=== PATIENT | male | born 1980 | race Hispanic/Latino ===

== ENCOUNTER 2018-03-19 22:08 | Emergency (ER) | payer SELFPAY ==
[~2018-03-19 22:08] MED LIST: AEC81 PO; ALLO300T2 PO; FLUT16H NASAL
[2018-03-19] MEDS ORDERED: SODIUM CHLORIDE 0.9% 1000ML 1,000 ML IV ONE (22:50)
[2018-03-19] MEDS ORDERED: ONDANSETRON HCL MDV 20ML 2 MG/ML VIAL ONE (22:50)
[2018-03-19] MEDS ORDERED: KETOROLAC TROMETHAMINE 30MG/ML ONE (22:51)
[2018-03-19 22:52] LABS: BASOPHILS % (AUTO) 0.5 % (0.0-5.0); EOSINOPHILS % (AUTO) 2.5 % (0.0-8.0); LYMPHOCYTES % (AUTO) 29.9 % (21.0-51.0); MEAN CORPUSCULAR HEMOGLOBIN 27.3 pg (27.0-33.0); MEAN CORPUSCULAR HGB CONC 33.5 g/dL (32.0-36.0); MEAN CORPUSCULAR VOLUME 81.6 fL (79-99); MONOCYTES % (AUTO) 6.3 % (3.0-13.0); NEUTROPHILS % (AUTO) 60.8 % (40.0-77.0); PLATELET COUNT (AUTO) 426 K/uL (130-400); RED BLOOD CELL COUNT(AUTO) 4.78 MIL/uL (4.50-6.20); RED CELL DISTRIBUTION WIDTH 14.4 % (11.0-15.5); WHITE BLOOD COUNT (AUTO) 14.1 K/uL (4.8-10.8)
[2018-03-19 23:11] LABS: CREATININE 1.1 mg/dL (0.5-1.5); POTASSIUM 3.7 mmol/L (3.5-5.1)
[2018-03-19 23:16] LABS: ALBUMIN 3.9 g/dL (3.5-5.0); BILIRUBIN,TOTAL 0.2 mg/dL (0.2-1.0); TOTAL PROTEIN, SERUM 9.3 g/dL (6.0-8.3)
[2018-03-20] MEDS ORDERED: CYCLOBENZAPRINE HCL 10 MG TABLET ONE (00:50)
== END 2018-03-20 00:56 | disposition home or self-care (01) ==
LOC: EDH 22:08
DX: M62.830 Muscle spasm of back (principal); M10.9 Gout, unspecified; Z88.8 Allergy status to other drugs, medicaments and biological substances
CPT/HCPCS: 36415; 72040; 80053; 84484; 85025; 93005; 96361; 96374; 96375; 99285; J1885; J7030

== ENCOUNTER 2018-08-23 19:59 | Emergency (ER) | payer OTHER ==
[2018-08-23 21:37] LABS: BASOPHILS % (AUTO) 0.4 % (0.0-5.0); EOSINOPHILS % (AUTO) 2.1 % (0.0-8.0); HEMATOCRIT 35.9 % (42-54); LYMPHOCYTES % (AUTO) 21.2 % (21.0-51.0); MEAN CORPUSCULAR HEMOGLOBIN 27.2 pg (27.0-33.0); MEAN CORPUSCULAR HGB CONC 32.5 g/dL (32.0-36.0); MEAN CORPUSCULAR VOLUME 83.7 fL (79-99); MONOCYTES % (AUTO) 8.6 % (3.0-13.0); NEUTROPHILS % (AUTO) 67.7 % (40.0-77.0); PLATELET COUNT (AUTO) 324 K/uL (130-400); RED BLOOD CELL COUNT(AUTO) 4.29 MIL/uL (4.50-6.20); RED CELL DISTRIBUTION WIDTH 14.1 % (11.0-15.5); WHITE BLOOD COUNT (AUTO) 14.9 K/uL (4.8-10.8)
[2018-08-23] MEDS ORDERED: SODIUM CHLORIDE 0.9% 1000ML 1,000 ML IV ONE (21:45)
[2018-08-23] MEDS ORDERED: INDOMETHACIN 25 MG CAP PO SCH (21:45)
[2018-08-23] MEDS ORDERED: KETOROLAC TROMETHAMINE 30MG/ML ONE (21:45)
[2018-08-23 21:54] LABS: POTASSIUM 3.5 mmol/L (3.5-5.1)
[2018-08-23 21:59] LABS: ALBUMIN 3.3 g/dL (3.5-5.0); BILIRUBIN,TOTAL 0.2 mg/dL (0.2-1.0); TOTAL PROTEIN, SERUM 8.3 g/dL (6.0-8.3)
[2018-08-24] MEDS ORDERED: MORPHINE SULFATE 4 MG/1ML SYG ONE (00:01)
[2018-08-24] MEDS ORDERED: ONDANSETRON HCL 4 MG/2 ML VIAL ONE (00:01)
== END 2018-08-24 01:45 | disposition home or self-care (01) ==
LOC: EDH 19:59
DX: M10.9 Gout, unspecified (principal); I10 Essential (primary) hypertension; Z88.8 Allergy status to other drugs, medicaments and biological substances
CPT/HCPCS: 36415; 73080; 80053; 84550; 85025; 96374; 96375; 99285; J1885; J2270; J2405; J7030

== ENCOUNTER 2018-10-08 16:40 | Emergency (ER) | payer OTHER ==
[2018-10-08] MEDS ORDERED: SODIUM CHLORIDE 0.9% 1000ML 1,000 ML IV ONE (17:48)
[2018-10-08] MEDS ORDERED: ONDANSETRON HCL 4 MG/2 ML VIAL ONE (17:48)
[2018-10-08] MEDS ORDERED: MECLIZINE HCL 25 MG TABLET ONE (17:48)
[2018-10-08 18:25] LABS: EOSINOPHILS % (AUTO) 3.2 % (0.0-8.0); HEMATOCRIT 40.3 % (42-54); MEAN CORPUSCULAR HEMOGLOBIN 28.2 pg (27.0-33.0); MEAN CORPUSCULAR HGB CONC 33.5 g/dL (32.0-36.0); MONOCYTES % (AUTO) 6.5 % (3.0-13.0); NEUTROPHILS % (AUTO) 62.3 % (40.0-77.0); PLATELET COUNT (AUTO) 374 K/uL (130-400); RED BLOOD CELL COUNT(AUTO) 4.79 MIL/uL (4.50-6.20); RED CELL DISTRIBUTION WIDTH 14.4 % (11.0-15.5); WHITE BLOOD COUNT (AUTO) 10.8 K/uL (4.8-10.8)
[2018-10-08 18:37] LABS: CREATININE 0.9 mg/dL (0.5-1.5); POTASSIUM 3.9 mmol/L (3.5-5.1)
[2018-10-08 18:41] LABS: APPEARANCE,URINE Clear (CLEAR); BILIRUBIN,URINE Negative (NEGATIVE); COLOR,URINE Yellow (YELLOW); GLUCOSE, URINE (UA) Negative (NEGATIVE); KETONES,URINE Negative (NEGATIVE); LEUKOCYTE ESTERASE ,URINE Negative (NEGATIVE); NITRATE,URINE Negative (NEGATIVE); OCCULT BLOOD,URINE Negative (NEGATIVE); PROTEIN,URINE Negative (NEGATIVE); UROBILINOGEN,URINE 0.2 mg/dL (0.2-1.0)
[2018-10-08 18:42] LABS: ALBUMIN 3.7 g/dL (3.5-5.0); BILIRUBIN,TOTAL 0.2 mg/dL (0.2-1.0); TOTAL PROTEIN, SERUM 8.8 g/dL (6.0-8.3)
[2018-10-08 18:49] LABS: AMPHET/METH SCREEN,URINE NEGATIVE (NEGATIVE); BARBITURATE SCREEN, URINE NEGATIVE (NEGATIVE); BENZODIAZEPINES SCREEN,URINE NEGATIVE (NEGATIVE); CANNABINOID SCREEN,URINE NEGATIVE (NEGATIVE); COCAINE SCREEN,URINE NEGATIVE (NEGATIVE); OPIATE SCREEN,URINE NEGATIVE (NEGATIVE); PHENCYCLIDINE SCREEN,URINE NEGATIVE (NEGATIVE)
[2018-10-08] MEDS ORDERED: PROMETHAZINE HCL 25 MG/ML 1ML AMPULE IM ONE (20:24)
== END 2018-10-08 20:37 | disposition home or self-care (01) ==
LOC: EDH 16:40
DX: H81.10 Benign paroxysmal vertigo, unspecified ear (principal); R22.0 Localized swelling, mass and lump, head; M10.9 Gout, unspecified; Z88.8 Allergy status to other drugs, medicaments and biological substances
CPT/HCPCS: 36415; 70450; 80053; 80305; 81003; 85025; 96361; 96372; 96374; 99285; J2405; J2550; J7030

== ENCOUNTER 2018-11-28 01:18 | Emergency (ER) | payer OTHER ==
[2018-11-28] MEDS ORDERED: BENZONATATE 100 MG CAPSULE PO ONE (02:00)
[2018-11-28] MEDS ORDERED: IPRATROPIUM/ALBUTEROL SULFATE 3 ML SOLUTION IH ONE (02:19)
[2018-11-28] MEDS ORDERED: PREDNISONE 20 MG TABLET ONE (02:48)
[2018-11-28] MEDS ORDERED: AZITHROMYCIN 250 MG TABLET PO ONE (03:40)
== END 2018-11-28 03:47 | disposition home or self-care (01) ==
LOC: EDH 01:18
DX: J18.8 Other pneumonia, unspecified organism (principal); Z88.8 Allergy status to other drugs, medicaments and biological substances
CPT/HCPCS: 71046; 87804; 94640

== ENCOUNTER 2019-01-12 22:25 | Emergency (ER) | payer OTHER ==
[2019-01-12] MEDS ORDERED: KETOROLAC TROMETHAMINE 60 MG/2 ML VIAL ONE (23:37)
[2019-01-12] MEDS ORDERED: DIAZEPAM 5 MG TABLET ONE (23:37)
[2019-01-12] MEDS ORDERED: HYDROCODONE/ACETAMINOPHEN 10/325 MG TAB ONE (23:38)
== END 2019-01-13 00:02 | disposition home or self-care (01) ==
LOC: EDH 22:25
DX: M62.830 Muscle spasm of back (principal); M54.6 Pain in thoracic spine; M54.2 Cervicalgia; Z88.6 Allergy status to analgesic agent
CPT/HCPCS: 96372; 99283; J1885

== ENCOUNTER 2019-09-18 19:46 | Emergency (ER) | payer OTHER ==
[2019-09-18] MEDS ORDERED: ACETAMINOPHEN EXTRA STRENGTH 500 MG TABLET ONE (20:06)
== END 2019-09-18 21:48 | disposition home or self-care (01) ==
LOC: EDH 19:46
DX: S49.92XA Unspecified injury of left shoulder and upper arm, initial encounter (principal); E11.9 Type 2 diabetes mellitus without complications; Z88.8 Allergy status to other drugs, medicaments and biological substances; W01.0XXA Fall on same level from slipping, tripping and stumbling without subsequent striking against object, initial encounter; Y93.E5 Activity, floor mopping and cleaning; Y92.89 Other specified places as the place of occurrence of the external cause; Y99.8 Other external cause status
CPT/HCPCS: 73030; 73060

== ENCOUNTER 2021-08-12 22:10 | Emergency (ER) | payer SELFPAY ==
[~2021-08-12] VITALS: Ht 180.3 cm; Wt 153.3 kg
[2021-08-12 23:29] VITALS: BP 155/86
[2021-08-13 00:54] LABS: HEMATOCRIT 32.6 % (42-54); MEAN CORPUSCULAR HEMOGLOBIN 27.2 pg (27.0-33.0); MEAN CORPUSCULAR HGB CONC 31.9 g/dL (32.0-36.0); MEAN CORPUSCULAR VOLUME 85.3 fL (79-99); PLATELET COUNT (AUTO) 385 K/uL (130-400); RED BLOOD CELL COUNT(AUTO) 3.82 MIL/uL (4.50-6.20); RED CELL DISTRIBUTION WIDTH 14.6 % (11.0-15.5); WHITE BLOOD COUNT (AUTO) 12.7 K/uL (4.8-10.8)
[2021-08-13] MEDS ORDERED: COLCHICINE 0.6 MG TABLET PO SCH ×2 (01:00→02:00)
[2021-08-13 01:06] LABS: CREATININE 0.9 mg/dL (0.5-1.5)
[2021-08-13 01:07] LABS: APPEARANCE,URINE Clear (CLEAR); BILIRUBIN,URINE Negative (NEGATIVE); COLOR,URINE Yellow (YELLOW); GLUCOSE, URINE (UA) Negative (NEGATIVE); KETONES,URINE Negative (NEGATIVE); LEUKOCYTE ESTERASE ,URINE Negative (NEGATIVE); NITRATE,URINE Negative (NEGATIVE); OCCULT BLOOD,URINE Negative (NEGATIVE); PH,URINE 5.5 (5.0-8.0); PROTEIN,URINE Negative (NEGATIVE); UROBILINOGEN,URINE 0.2 mg/dL (0.2-1.0)
[2021-08-13 01:10] LABS: ALBUMIN 3.4 g/dL (3.5-5.0); BILIRUBIN,TOTAL 0.3 mg/dL (0.2-1.0); CRP QUANTITATIVE 45.7 mg/L (0.00-9.0); TOTAL PROTEIN, SERUM 8.1 g/dL (6.0-8.3); URIC ACID 5.9 mg/dL (2.6-7.2)
[2021-08-13] MEDS ORDERED: COLC0.6C3 PO (01:27)
[2021-08-13 01:34] VITALS: BP 153/84
[2021-08-13 02:06] LABS: BAND NEUTROPHILS % (MANUAL) 5 % (0-2); LYMPHOCYTES % (MANUAL) 19 % (22-44); MONOCYTES % (MANUAL) 2 % (2-9); SEGMENTED NEUTROPHILS % 74 % (40-70)
[2021-08-13 02:07] LABS: MAN.DIFF COMMENT-IMPRESSION MANUAL DIFFERENTIAL; PLATELET MORPHOLOGY COMMENT ADEQUATE
== END 2021-08-13 01:36 | disposition home or self-care (01) ==
LOC: EDH 22:10
DX: M10.9 Gout, unspecified (principal); E11.9 Type 2 diabetes mellitus without complications; E66.01 Morbid (severe) obesity due to excess calories; Z68.42 Body mass index [BMI] 45.0-49.9, adult; Z79.82 Long term (current) use of aspirin
CPT/HCPCS: 36415; 73630; 80053; 81003; 84550; 85025; 86140

== ENCOUNTER 2022-03-21 20:13 | Emergency (ER) | payer OTHER ==
[~2022-03-21] VITALS: Ht 177.8 cm; Wt 147.4 kg
[~2022-03-21 20:13] MED LIST changes: +COLC0.6C3 PO
[2022-03-21] MEDS ORDERED: KETOROLAC 30MG VIAL (30MG/ML) IVP ONE (21:00)
[2022-03-21] MEDS ORDERED: CYCLOBENZAPRINE HCL 10 MG TABLET PO ONE (21:00)
[2022-03-21] MEDS ORDERED: PROMETHAZINE HCL 25 MG/ML 1ML AMPULE IM ONE ×2 (21:00)
[2022-03-21] MEDS ORDERED: 0.9%NACL 1000ML 1,000 ML IV SCH (21:00)
[2022-03-21] MEDS ORDERED: KETOROLAC 30MG VIAL (30MG/ML) ONE (21:05)
[2022-03-21] MEDS ORDERED: CYCLOBENZAPRINE HCL 10 MG TABLET ONE (21:05)
[2022-03-21] MEDS ORDERED: 0.9%NACL 1000ML 1,000 ML IV ONE (21:10)
[2022-03-21 21:14] LABS: POTASSIUM 3.8 mmol/L (3.5-5.1)
[2022-03-21 21:15] LABS: APPEARANCE,URINE CLEAR (CLEAR); BILIRUBIN,URINE NEGATIVE (NEGATIVE); COLOR,URINE YELLOW (YELLOW); GLUCOSE, URINE (UA) NEGATIVE (NEGATIVE); KETONES,URINE NEGATIVE (NEGATIVE); LEUKOCYTE ESTERASE ,URINE NEGATIVE (NEGATIVE); NITRATE,URINE NEGATIVE (NEGATIVE); OCCULT BLOOD,URINE NEGATIVE (NEGATIVE); PROTEIN,URINE NEGATIVE (NEGATIVE); UROBILINOGEN,URINE 0.2 mg/dL (0.2-1.0)
[2022-03-21 21:16] LABS: BASOPHILS % (AUTO) 0.3 % (0.0-5.0); HEMATOCRIT 38.5 % (42-54); LYMPHOCYTES % (AUTO) 24.6 % (21.0-51.0); MEAN CORPUSCULAR HEMOGLOBIN 26.2 pg (27.0-33.0); MEAN CORPUSCULAR HGB CONC 31.4 g/dL (32.0-36.0); MEAN CORPUSCULAR VOLUME 83.5 fL (79-99); MONOCYTES % (AUTO) 6.1 % (3.0-13.0); NEUTROPHILS % (AUTO) 65.6 % (40.0-77.0); PLATELET COUNT (AUTO) 373 K/uL (130-400); RED BLOOD CELL COUNT(AUTO) 4.61 MIL/uL (4.50-6.20); RED CELL DISTRIBUTION WIDTH 14.3 % (11.0-15.5); WHITE BLOOD COUNT (AUTO) 15.5 K/uL (4.8-10.8)
[2022-03-21 21:21] LABS: ALBUMIN 3.7 g/dL (3.5-5.0); BILIRUBIN,TOTAL 0.3 mg/dL (0.2-1.0); TOTAL PROTEIN, SERUM 8.7 g/dL (6.0-8.3)
[2022-03-21 21:43] VITALS: BP 152/87
[2022-03-21] MEDS ORDERED: CYCL10TA16 PO (22:14)
[2022-03-21] MEDS ORDERED: ACET-2247 PO (22:14)
== END 2022-03-21 22:27 | disposition home or self-care (01) ==
LOC: EDH 20:13
DX: G44.209 Tension-type headache, unspecified, not intractable (principal); E86.0 Dehydration; E11.9 Type 2 diabetes mellitus without complications; E66.01 Morbid (severe) obesity due to excess calories; Z68.42 Body mass index [BMI] 45.0-49.9, adult; Z88.8 Allergy status to other drugs, medicaments and biological substances; Z79.899 Other long term (current) drug therapy; Z79.82 Long term (current) use of aspirin
CPT/HCPCS: 36415; 71045; 80053; 81003; 83690; 84484; 85025; 87804 ×2; 87880; 96361; 96372; 96374; 99284; J1885; J2550; J7030

== ENCOUNTER 2022-04-06 14:15 | Emergency (ER) | payer OTHER ==
[~2022-04-06] VITALS: Ht 180.3 cm; Wt 145.1 kg
[~2022-04-06 14:15] MED LIST changes: +ACET-2247 PO; +CYCL10TA16 PO
[2022-04-06] MEDS ORDERED: KETOROLAC 30MG VIAL (30MG/ML) IM ONE (15:00)
[2022-04-06] MEDS ORDERED: LORAZEPAM 2 MG/ML 1 ML VIAL IM ONE (15:00)
[2022-04-06] MEDS ORDERED: KETOROLAC 30MG VIAL (30MG/ML) ONE (15:06)
[2022-04-06] MEDS ORDERED: LORAZEPAM 2 MG/ML 1 ML VIAL ONE (15:07)
[2022-04-06] MEDS ORDERED: NAPR500T6 PO (15:13)
[2022-04-06] MEDS ORDERED: CYCL10TA16 PO (15:13)
[2022-04-06 16:42] VITALS: BP 122/78
== END 2022-04-06 16:46 | disposition home or self-care (01) ==
LOC: EDH 14:15
DX: M54.12 Radiculopathy, cervical region (principal); E11.9 Type 2 diabetes mellitus without complications; Z79.899 Other long term (current) drug therapy; Z79.82 Long term (current) use of aspirin; Z88.8 Allergy status to other drugs, medicaments and biological substances
CPT/HCPCS: 93005; 96372 ×2; 99284; J1885; J2060

== ENCOUNTER 2023-03-10 19:53 | Emergency (ER) | payer BC, OTHER ==
[~2023-03-10] VITALS: Ht 177.8 cm; Wt 139.3 kg
[~2023-03-10 19:53] MED LIST changes: +NAPR500T6 PO
[2023-03-10 20:09] VITALS: BP 154/88
[2023-03-10 20:31] LABS: BASOPHILS % (AUTO) 0.3 % (0.0-5.0); EOSINOPHILS % (AUTO) 2.4 % (0.0-8.0); HEMATOCRIT 39.6 % (42-54); LYMPHOCYTES % (AUTO) 24.8 % (21.0-51.0); MEAN CORPUSCULAR HEMOGLOBIN 26.6 pg (27.0-33.0); MEAN CORPUSCULAR HGB CONC 32.3 g/dL (32.0-36.0); MEAN CORPUSCULAR VOLUME 82.3 fL (79-99); MONOCYTES % (AUTO) 6.4 % (3.0-13.0); NEUTROPHILS % (AUTO) 65.6 % (40.0-77.0); PLATELET COUNT (AUTO) 387 K/uL (130-400); RED BLOOD CELL COUNT(AUTO) 4.81 MIL/uL (4.50-6.20); RED CELL DISTRIBUTION WIDTH 13.5 % (11.0-15.5); WHITE BLOOD COUNT (AUTO) 14.8 K/uL (4.8-10.8)
[2023-03-10 20:46] LABS: POTASSIUM 3.8 mmol/L (3.5-5.1)
[2023-03-10 20:56] LABS: ALBUMIN 3.8 g/dL (3.5-5.0); TOTAL PROTEIN, SERUM 8.9 g/dL (6.0-8.3)
[2023-03-10 21:02] LABS: APPEARANCE,URINE CLEAR (CLEAR); BILIRUBIN,URINE NEGATIVE (NEGATIVE); COLOR,URINE LIGHT-YELLOW (YELLOW); GLUCOSE, URINE (UA) NEGATIVE (NEGATIVE); KETONES,URINE NEGATIVE (NEGATIVE); LEUKOCYTE ESTERASE ,URINE NEGATIVE Leu/uL (NEGATIVE); NITRATE,URINE NEGATIVE (NEGATIVE); OCCULT BLOOD,URINE NEGATIVE (NEGATIVE); PH,URINE 5.5 (5.0-8.0); PROTEIN,URINE 30 mg/dL (NEGATIVE); UROBILINOGEN,URINE 0.2 mg/dL (0.2-1.0)
[2023-03-10 21:04] LABS: MUCUS,URINE RARE LPF (None Seen); RBC,URINE 0-1 /HPF (0-1); SQUAMOUS EPITHELIAL CELL,UR RARE /HPF (0-2); WBC,URINE 0-1 /HPF (0-1)
[2023-03-10 21:07] LABS: AMPHET/METH SCREEN,URINE NEGATIVE (NEGATIVE); BARBITURATE SCREEN, URINE NEGATIVE (NEGATIVE); BENZODIAZEPINES SCREEN,URINE NEGATIVE (NEGATIVE); CANNABINOID SCREEN,URINE NEGATIVE (NEGATIVE); COCAINE SCREEN,URINE NEGATIVE (NEGATIVE); OPIATE SCREEN,URINE NEGATIVE (NEGATIVE); PHENCYCLIDINE SCREEN,URINE NEGATIVE (NEGATIVE)
[2023-03-10] MEDS ORDERED: IBUP-2070 PO (22:43)
[2023-03-10] MEDS ORDERED: KETOROLAC 15MG/ML VIAL (15MG/ML) IM ONE (23:00)
== END 2023-03-10 22:54 | disposition home or self-care (01) ==
LOC: EDH 19:53
DX: R07.89 Other chest pain (principal); E11.9 Type 2 diabetes mellitus without complications; Z79.82 Long term (current) use of aspirin; Z79.899 Other long term (current) drug therapy; Z83.3 Family history of diabetes mellitus; E66.09 Other obesity due to excess calories; Z68.41 Body mass index [BMI] 40.0-44.9, adult
CPT/HCPCS: 99284; 71045; 84484; 80053; 80305; 85025; 36415; 96372; 93005; 81001; J1885

== ENCOUNTER 2023-11-01 17:01 | Emergency (ER) | payer BC ==
[~2023-11-01] VITALS: Ht 180.3 cm; Wt 133.8 kg
[~2023-11-01 17:01] MED LIST changes: +IBUP-2070 PO
[2023-11-01] MEDS ORDERED: ORPHENADRINE CITRATE 30 MG/ML ML IM ONE (22:30)
[2023-11-01] MEDS ORDERED: KETOROLAC 60 MG VIAL (30MG/ML) IM ONE (22:30)
[2023-11-01] MEDS ORDERED: CYCL-309 PO (22:34)
[2023-11-01] MEDS ORDERED: NAPR-1180 PO (22:34)
[2023-11-01 23:22] VITALS: BP 136/67; PULSE 88; RESP 18; O2SAT 99
== END 2023-11-01 23:25 | disposition home or self-care (01) ==
LOC: EDH 17:01
DX: M54.12 Radiculopathy, cervical region (principal); E66.01 Morbid (severe) obesity due to excess calories; E11.9 Type 2 diabetes mellitus without complications; Z79.82 Long term (current) use of aspirin; Z68.41 Body mass index [BMI] 40.0-44.9, adult
CPT/HCPCS: 99284; 96372 ×2; J1885; J2360

== ENCOUNTER 2024-12-29 21:44 | Emergency (ER) | payer BC ==
[~2024-12-29] VITALS: Ht 180.3 cm; Wt 131.5 kg
[~2024-12-29 21:44] MED LIST changes: +CYCL-309 PO; +NAPR-1180 PO; +NAPR-1506 PO; -NAPR500T6 PO
[2024-12-29 22:40] VITALS: TEMP 97
--- NOTE | 2024-12-29 22:54 | NUR ---
PT CARE ASSUMED AT THIS TIME
--- NOTE | 2024-12-29 22:56 | ERN ---
ED Note History of Present Illness Stated Complaint: RIGHT FOOT RASH Chief Complaint: Toe Pain/Injury Time Seen by MD: 21:55 Time Seen by Midlevel: 21:55 Dictation: The patient is a 44-year-old male with a history of diabetes, gout who presents to the emergency department with complaints of right toe redness onset . Patient denies any fevers. Denies any drainage. Denies any injury. Allergies: Coded Allergies: No Known Drug Allergies (Verified Allergy, Unknown, 01/28/16) codeine (Unverified Allergy, Unknown, 12/29/24) methylprednisolone (Unverified Allergy, Unknown, VOMITTING, 11/10/17) Home Meds Active Scripts Sulfamethoxazole/Trimethoprim (Bactrim Ds Tablet) 800 Mg-160 Mg Tablet, 1 TAB PO BID for 7 Days, #14 TAB 0 Refills Prov:STEVEN THIBODEAUX OIL LABORATORY ANALYST 12/29/24 Cyclobenzaprine HCl (Cyclobenzaprine HCl) 10 Mg Tablet, 10 MG PO TID PRN for SPASM, #15 TAB 0 Refills Prov:ADARSH AHMADI MD 11/01/23 Naproxen (Naprosyn) 500 Mg Tablet, 500 MG PO BIDPC for 10 Days, #20 TAB 0 Refills Prov:ADARSH AHMADI MD 11/01/23 Ibuprofen (Ibuprofen) 600 Mg Tablet, 600 MG PO Q6H PRN for PAIN, #30 TAB Prov:NATI RAJAN MD 03/10/23 Cyclobenzaprine HCl (Flexeril) 10 Mg Tab, 10 MG PO TID, #15 TAB Prov:OPAL NIXON [facility] 04/06/22 Naproxen (Naproxen) 500 Mg Tablet.dr, 500 MG PO BIDPC, #15 TAB Prov:OPAL NIXON [facility] 04/06/22 Cyclobenzaprine HCl (Flexeril) 10 Mg Tab, 10 MG PO BID, #30 TAB Prov:CADEN WILKINSON 03/21/22 Acetaminophen (Tylenol) 325 Mg Tablet, 650 MG PO Q4HPRN, #50 TAB Prov:CADEN WILKINSON 03/21/22 Colchicine (Colchicine) 0.6 Mg Capsule, 0.6 MG PO Q1HR for pain+redness/swelling, #8 CAP 0 Refills Prov:PABLO BANG MD 08/13/21 Reported Medications Aspirin (ASPIRIN 81 MG ECTAB) 81 Mg Ectab, 81 MG PO DAILY, TAB.EC 01/28/16 Fluticasone Propionate (Flonase Nasal [place]) 50 Mcg/[place], 1 SPRAY NASAL DAILY, SPRAY 01/28/16 Allopurinol (Allopurinol) 300 Mg Tablet, 300 MG PO HS, TAB 01/28/16 Past Medical History Past Medical History: Diabetes-Type II, Diverticulosis Additional Past Medical Hx: Morbid obese, GOUT Surgical History: None Surgical History Other: NECK SX Family History: DM, HTN Social History: Negative RN Note Reviewed/Agreed w/PFSH: Yes Review of System Dictation Constitutional: Negative for fever,chills, and weight loss Eyes: Negative for injury, pain,redness, and discharge ENT: Negative for injury,pain or swelling Cardiovascular: Negative for chest pain, palpitations, and edema Respiratory: Negative for shortness of breath, cough, and wheezing, Abdomen/GI: Negative for abdominal pain, nausea, vomiting, diarrhea, and constipation Back: Negative for injury and pain : Negative for injury, bleeding and discharge MS/Extremity: Negative for injury and deformity Skin: Negative for rash, and discoloration positive for erythema to right toe Neuro: Negative for headache, weakness, numbness, tingling, and seizure Psych: Negative for suicide ideation, homicidal ideation, and hallucinations Initial Vital Sign VS Vital Signs Date Time Temp Pulse Resp B/P (MAP) Pulse Ox O2 Delivery O2 Flow Rate FiO2 12/29/24 21:47 97.0 94 20 151/94 100 Room Air 12/29/24 22:40 0 21 Physical Exam Dictation Vital Signs reviewed General Appearance: Alert, oriented x 3, no acute distress, well developed, nourished. Head and Face: non-traumatic. Eyes: PERRL, pink conjunctivas, eyelid no trauma, anterior chamber with arcus senilis. Ears: Pinnas intact and no signs of trauma or erythema ear canals clear and no discharge TM no erythema Nose: No discharge, no bleeding. Oropharynx: Mouth normal, tongue pink. pharynx clear,no erythema, tonsils no exudates, no abscesses noted, mucous membrane moist Neck: Supple, non-tender, no thyromegaly, no masses, no JVD, no bruits Breast:Deferred Chest:No tenderness, no crepitus, no paradoxical movement, no retractions Lungs:Clear, well-ventilated, symmetric, no rales, no wheezing, no rhonchi, no stridor, good breath sounds bilaterally Heart: Regular rate, regular rhythm, no murmur, no gallops Vascular: no peripheral edema, Abdomen: Soft, positive bowel sounds, nondistended, no guarding, nontender, no rebound, no masses no hepatomegaly, no splenomegaly, no Bravo's sign, no hernias. Rectal: Deferred Genital: Deferred Neurological: Normal speech, motor function intact, sensory function intact Musculoskeletal: Neck nontender, full range of motion, back nontender, full range of motion, Extremities: nontender, full range of motion Skin: Color pink, dry, no turgor, no rash, no lacerations, no abrasions, no contusions. Erythema noted along the nail fold. No drainage. Lymphatic: Deferred Results (Laboratory/Radiology) Labs Reviewed?: Yes ED Course ED Course Orders Procedure Category Date Status Time Ceftriaxone 1g Vial PHA 12/29/24 Complete (Rocephine 1g Inj) 23:00 Ketorolac 60mg/2ml PHA 12/29/24 Complete (Toradol 60mg/2ml) 23:00 Lidocaine Hcl 1% 20ml PHA 12/30/24 Verified Vial (Lidocaine Hc 00:00 Laceration Tray Set CPOE 12/29/24 Verified Up (Er) 23:31 Current Medications Medications (Trade) Dose Ordered Sig/Myrtle Route PRN Reason Start Time Stop Time Status Last Admin Dose Admin Ceftriaxone Sodium (ROCEphine 1G INJ) 1 gm ONCE ONCE IM 12/29/24 23:00 12/29/24 23:02 DC 12/29/24 23:20 Ketorolac Tromethamine (toRADol 60MG/ 2ML) 60 mg ONCE ONCE IM 12/29/24 23:00 12/29/24 23:02 DC 12/29/24 23:14 Vital Signs Date Time Temp Pulse Resp B/P (MAP) Pulse Ox O2 Delivery O2 Flow Rate FiO2 12/29/24 22:40 97.0 94 20 151/94 100 Room Air* 0 21 12/29/24 21:47 97.0 94 20 151/94 100 Room Air Medical Decision Making MDM The patient is a 44-year-old male with a history of diabetes, gout who presents to the emergency department with complaints of right toe redness onset . Patient denies any fevers. Denies any drainage. Denies any injury. Patient with paronychia. We will be treated with the antibiotics and instructed to follow up with PCP. Patient instructed to return if symptoms worsen. Patient in no acute distress, nontoxic appearance. Nonfebrile Differential diagnosis: Cellulitis, paronychia, toe contusion. Need for hospitalization: Patient does not meet criteria for hospitalization. There are no social concerns with this patient. DX & DISP Disposition: Discharge Departure Impression: Primary Impression: Paronychia of great toe of right foot Condition: Stable Scripts Sulfamethoxazole/Trimethoprim (Bactrim Ds Tablet) 800 Mg-160 Mg Tablet 1 TAB PO BID for 7 Days, #14 TAB 0 Refills Prov: STEVEN THIBODEAUX 12/29/24 Additional Instructions: Please follow up with your PCP and linesperson. Continue taking antibiotics as prescribed. If symptoms worsen. You develop fevers, you finish antibiotics with no relief. Drainage please return to ER or follow up with your primary doctor. FOLLOW-UP WITH PRIMARY CARE PROVIDER IN 1 TO 2 DAYS. TAKE MEDICATIONS DIRECTED HERE IN THE EMERGENCY ROOM. OKAY TO CONTINUE HOME MEDICATIONS UNLESS OTHERWISE DISCUSSED DURING YOUR VISIT IN THE EMERGENCY ROOM TODAY. RETURN TO YOUR NEAREST EMERGENCY ROOM IF SYMPTOMS WORSEN OR IF THERE IS NO IMPROVEMENT. CALL 911 IF YOU NEED IMMEDIATE ASSISTANCE. TAKE TYLENOL OR MOTRIN [id number] NEEDED AND IF NO CONTRAINDICATIONS ARE PRESENT. INCREASE ORAL HYDRATION. A WOUND CULTURE OR URINE CULTURE WAS ORDERED HERE IN THE EMERGENCY ROOM DEPARTMENT PLEASE FOLLOW-UP WITH PRIMARY CARE PROVIDER AND ADVISE THEM TO GET REPEAT PORTS FROM OUR FACILITY. IF YOU HAD ANY DANNI WRAP/SPLINTS THAT WERE APPLIED HERE, PLEASE DO NOT REMOVE THEM UNTIL YOU SEE YOUR PRIMARY CARE OR SPECIALTY. Referrals: JENNIFER XIE MD (PCP) Time of Disposition: 22:58 I have reviewed the case, and I agree with, Diagnosis and Plan STEVEN THIBODEAUX Dec 29, 2024 22:56
[2024-12-29] MEDS ORDERED: SULF1TAB42 PO (23:04)
[2024-12-29] MEDS: ketOROlac 60 MG VIAL (30MG/ML) IM ONE (23:14)
[2024-12-29] MEDS: cefTRIAXone 1G VIAL IM ONE (23:20)
[2024-12-30] MEDS ORDERED: LIDOCAINE HCL 1% 20 ML VIAL INJ SCH
[2024-12-30 00:17] VITALS: BP 135/84; PULSE 95; RESP 16; O2SAT 95
== END 2024-12-30 00:27 | disposition home or self-care (01) ==
LOC: EDH 21:44
DX: L03.031 Cellulitis of right toe (principal); E11.9 Type 2 diabetes mellitus without complications; E66.01 Morbid (severe) obesity due to excess calories; Z79.82 Long term (current) use of aspirin; Z88.5 Allergy status to narcotic agent
CPT/HCPCS: 99284; 96372 ×2; J1885; J0696

== ENCOUNTER 2025-03-17 20:08 | Emergency (ER) | payer BC ==
[~2025-03-17] VITALS: Ht 180.3 cm; Wt 131.5 kg
[~2025-03-17 20:08] MED LIST changes: +SULF1TAB42 PO
[2025-03-17 21:09] VITALS: BP 150/75; PULSE 93; RESP 16; TEMP 98.3; O2SAT 100
[2025-03-17] MEDS ORDERED: CLOT15CR23 TP (21:33)
[2025-03-17] MEDS ORDERED: SULF1TAB42 PO (21:33)
--- NOTE | 2025-03-17 21:34 | ERN ---
General Chief Complaint: Other Problems Stated Complaint: BLEEDING WART Time Seen by MD: 20:10 Time Seen by Midlevel: 20:10 Source: patient History of Present Illness Initial Comments The patient is a 44-year-old male with no significant past medical history presenting to the emergency department for evaluation of a lesion to his mid chest. Per patient he has a wart to the center of his chest that has now started to bleed with surrounding redness. The redness started approximately two days ago. The wart started over three weeks ago and is currently waiting to get an appointment with a specialist. He denies any fever, chills, or any other symptoms at this time. Allergies: Coded Allergies: No Known Drug Allergies (Verified Allergy, Unknown, 01/28/16) codeine (Unverified Allergy, Unknown, 12/29/24) methylprednisolone (Unverified Allergy, Unknown, VOMITTING, 11/10/17) Home Meds Active Scripts Sulfamethoxazole/Trimethoprim (Bactrim Ds Tablet) 800 Mg-160 Mg Tablet, 1 TAB PO BID for 7 Days, #14 TAB 0 Refills Prov:ARRON SINCLAIR 03/17/25 Clotrimazole (Clotrimazole) 1 % Cream..g., 1 APPL TP BID for 7 Days, #30 GM 0 Refills apply to affected area(s) Prov:ARRON SINCLAIR 03/17/25 Sulfamethoxazole/Trimethoprim (Bactrim Ds Tablet) 800 Mg-160 Mg Tablet, 1 TAB PO BID for 7 Days, #14 TAB 0 Refills Prov:STEVEN THIBODEAUX FUR BLOWER 12/29/24 Cyclobenzaprine HCl (Cyclobenzaprine HCl) 10 Mg Tablet, 10 MG PO TID PRN for SPASM, #15 TAB 0 Refills Prov:ADARSH AHMADI MD 11/01/23 Naproxen (Naprosyn) 500 Mg Tablet, 500 MG PO BIDPC for 10 Days, #20 TAB 0 Refills Prov:ADARSH AHMADI MD 11/01/23 Ibuprofen (Ibuprofen) 600 Mg Tablet, 600 MG PO Q6H PRN for PAIN, #30 TAB Prov:NATI RAJAN MD 03/10/23 Cyclobenzaprine HCl (Flexeril) 10 Mg Tab, 10 MG PO TID, #15 TAB Prov:OPAL NIXON [facility] 04/06/22 Naproxen (Naproxen) 500 Mg Tablet.dr, 500 MG PO BIDPC, #15 TAB Prov:HUSSAINOPAL FUR BLOWER 04/06/22 Cyclobenzaprine HCl (Flexeril) 10 Mg Tab, 10 MG PO BID, #30 TAB Prov:CADEN WILKINSON 03/21/22 Acetaminophen (Tylenol) 325 Mg Tablet, 650 MG PO Q4HPRN, #50 TAB Prov:CADEN WILKINSON 03/21/22 Colchicine (Colchicine) 0.6 Mg Capsule, 0.6 MG PO Q1HR for pain+redness/swelling, #8 CAP 0 Refills Prov:PABLO BANG MD 08/13/21 Reported Medications Aspirin (ASPIRIN 81 MG ECTAB) 81 Mg Ectab, 81 MG PO DAILY, TAB.EC 01/28/16 Fluticasone Propionate (Flonase Nasal [place]) 50 Mcg/[place], 1 SPRAY NASAL DAILY, SPRAY 01/28/16 Allopurinol (Allopurinol) 300 Mg Tablet, 300 MG PO HS, TAB 01/28/16 Past Medical History Past Medical History: Diabetes-Type II, Diverticulosis Medical History Other: Morbid obese, GOUT Past Surgical History: None Surgical History Other: NECK SX Family History Family History: DM, HTN Social History Social History: Negative ROS Dictation CONSTITUTIONAL: Negative except for HPI HEAD/FACE: Negative except for HPI EENT: Negative except for HPI RESPIRATORY: Negative except for HPI GASTROINTESTINAL/ABDOMINAL: Negative except for HPI GENITOURINARY: Negative except for HPI MUSCULOSKELETAL: Negative except for HPI INTEGUMENTARY: Negative except for HPI NEUROLOGICAL/PSYCH: Negative except for HPI HEMATOLOGIC/LYMPHATIC: Negative except for HPI All Systems Negative, Except as noted above. 13 point review of systems assessed and all negative except for above. Physical Exam Physical Exam Dictation PHYSICAL EXAM: GENERAL: alert,, awake oriented x 3 HEENT: EOMI, Sclera non icteric, moist mucosa NECK: Supple, no JVD, trachea midline LUNGS: Clear breath sounds bilaterally. No wheezes HEART: Regular rate and rhythm. Normal S1 and S2, without murmurs ABD: Abdomen soft, nontender. Bowel sounds present EXT: No clubbing or cyanosis, NEURO: Alert and oriented to person, follows commands There is a wart like lesion to the mid chest with some mild erythema, no induration, area is not warm to touch, no drainable abscess MDM MDM: Differential diagnosis: Cellulitis, abscess, wart There are no social concerns with this patient. Prescription drug management Prescriptions will include: Bactrim and clotrimazole Medical management and examination interpretation discussions were had by me with other qualified healthcare professionals as indicated for the patient's care. ED Course Orders Procedure Category Date Status Time *Nursing CPOE 03/17/25 Transmitted Communication: 20:28 Vital Signs Date Time Temp Pulse Resp B/P (MAP) Pulse Ox O2 Delivery O2 Flow Rate FiO2 03/17/25 21:09 98.2 93 16 150/75 100 Room Air* 0 21 03/17/25 20:09 97.9 93 20 157/82 100 Room Air DX & DISP Disposition: Discharge Departure Impression: Primary Impression: Chest skin lesion Condition: Stable Scripts Sulfamethoxazole/Trimethoprim (Bactrim Ds Tablet) 800 Mg-160 Mg Tablet 1 TAB PO BID for 7 Days, #14 TAB 0 Refills Prov: ARRON SINCLAIR 03/17/25 Clotrimazole (Clotrimazole) 1 % Cream..g. 1 APPL TP BID for 7 Days, #30 GM 0 Refills apply to affected area(s) Prov: ARRON SINCLAIR 03/17/25 Additional Instructions: The lesion in your chest needs to be biopsied and excised. I have given you a follow up with the accounting supervisor. I have provided you with a topical ointment which should eradicate any fungal infection. I have also given you an oral antibiotic. Please follow up with your primary care doctor in 24-48 hours for repeat evaluation. Referrals: JENNIFER XIE MD (PCP) GILA VIDALES MD Time of Disposition: 21:31 I have reviewed the case ARRON SINCLAIR Mar 17, 2025 21:34
== END 2025-03-17 21:40 | disposition home or self-care (01) ==
LOC: EDH 20:08
DX: L98.9 Disorder of the skin and subcutaneous tissue, unspecified (principal); E11.9 Type 2 diabetes mellitus without complications; E66.01 Morbid (severe) obesity due to excess calories; M10.9 Gout, unspecified; Z79.82 Long term (current) use of aspirin; Z88.5 Allergy status to narcotic agent
CPT/HCPCS: 99283

== ENCOUNTER 2025-06-10 17:12 | Emergency (ER) | payer BC ==
[~2025-06-10] VITALS: Ht 180.3 cm; Wt 134.3 kg
[~2025-06-10 17:12] MED LIST changes: +CLOT15CR23 TP
[2025-06-10 17:15] VITALS: BP 143/98; PULSE 110; RESP 18; TEMP 99.6
--- NOTE | 2025-06-10 17:34 | ERN ---
ED Note History of Present Illness Stated Complaint: COUGH, SOB, NECK PAIN, BACK PAIN Chief Complaint: Congestion Time Seen by MD: 17:16 Time Seen by Midlevel: 17:16 Dictation: The patient is a 44-year-old male with a history of diabetes, diverticulosis who presents to the emergency department with multiple complaints. Patient reports he has been having upper back pain, nonproductive cough, onset today. Patient also reports he has been having some lightheadedness and shortness of breath th at also started today. Patient denies any recent falls. Denies any fevers, denies any ear pain or sore throat. Patient reports he has chronic neck pain due to neck surgery. Allergies: Coded Allergies: No Known Drug Allergies (Verified Allergy, Unknown, 01/28/16) codeine (Unverified Allergy, Unknown, 12/29/24) methylprednisolone (Unverified Allergy, Unknown, VOMITTING, 11/10/17) Home Meds Active Scripts Sulfamethoxazole/Trimethoprim (Bactrim Ds Tablet) 800 Mg-160 Mg Tablet, 1 TAB PO BID for 7 Days, #14 TAB 0 Refills Prov:ARRON SINCLAIR 03/17/25 Clotrimazole (Clotrimazole) 1 % Cream..g., 1 APPL TP BID for 7 Days, #30 GM 0 Refills apply to affected area(s) Prov:ARRON SINCLAIR 03/17/25 Sulfamethoxazole/Trimethoprim (Bactrim Ds Tablet) 800 Mg-160 Mg Tablet, 1 TAB PO BID for 7 Days, #14 TAB 0 Refills Prov:STEVEN THIBODEAUX 12/29/24 Cyclobenzaprine HCl (Cyclobenzaprine HCl) 10 Mg Tablet, 10 MG PO TID PRN for SPASM, #15 TAB 0 Refills Prov:ADARSH AHMADI MD 11/01/23 Naproxen (Naprosyn) 500 Mg Tablet, 500 MG PO BIDPC for 10 Days, #20 TAB 0 Refills Prov:ADARSH AHMADI MD 11/01/23 Ibuprofen (Ibuprofen) 600 Mg Tablet, 600 MG PO Q6H PRN for PAIN, #30 TAB Prov:NATI RAJAN MD 03/10/23 Cyclobenzaprine HCl (Flexeril) 10 Mg Tab, 10 MG PO TID, #15 TAB Prov:OPAL NIXON [employer] 04/06/22 Naproxen (Naproxen) 500 Mg Tablet.dr, 500 MG PO BIDPC, #15 TAB Prov:HUSSAINOPAL GREEN 04/06/22 Cyclobenzaprine HCl (Flexeril) 10 Mg Tab, 10 MG PO BID, #30 TAB Prov:CADEN WILKINSON 03/21/22 Acetaminophen (Tylenol) 325 Mg Tablet, 650 MG PO Q4HPRN, #50 TAB Prov:CADEN WILKINSON 03/21/22 Colchicine (Colchicine) 0.6 Mg Capsule, 0.6 MG PO Q1HR for pain+redness/swelling, #8 CAP 0 Refills Prov:PABLO BANG MD 08/13/21 Reported Medications Aspirin (ASPIRIN 81 MG ECTAB) 81 Mg Ectab, 81 MG PO DAILY, TAB.EC 01/28/16 Fluticasone Propionate (Flonase Nasal [place]) 50 Mcg/[place], 1 SPRAY NASAL DAILY, SPRAY 01/28/16 Allopurinol (Allopurinol) 300 Mg Tablet, 300 MG PO HS, TAB 01/28/16 Past Medical History Past Medical History: Diabetes-Type II, Diverticulosis Additional Past Medical Hx: Morbid obese, GOUT Surgical History: None Surgical History Other: NECK SX Family History: DM, HTN Social History: Negative RN Note Reviewed/Agreed w/PFSH: Yes Review of System Dictation Constitutional: Negative for fever,chills, and weight loss Eyes: Negative for injury, pain,redness, and discharge ENT: Negative for injury,pain or swelling Cardiovascular: Negative for chest pain, palpitations, and edema Respiratory: Negative for wheezing, positive for shortness of breath, cough Abdomen/GI: Negative for abdominal pain, nausea, vomiting, diarrhea, and con stipation Back: Negative for injury and pain : Negative for injury, bleeding and discharge MS/Extremity: Negative for injury and deformity positive for upper back pain Skin: Negative for rash, and discoloration Neuro: Negative for headache, weakness, numbness, tingling, and seizure positive for lightheadedness Psych: Negative for suicide ideation, homicidal ideation, and hallucinations Initial Vital Sign VS Vital Signs Date Time Temp Pulse Resp B/P (MAP) Pulse Ox O2 Delivery O2 Flow Rate FiO2 06/10/25 17:15 99.7 110 18 143/98 96 Room Air 0 Physical Exam Dictation Vital Signs reviewed General Appearance: Alert, oriented x 3, no acute distress, well developed, nourished. Head and Face: non-traumatic. Eyes: PERRL, pink conjunctivas, eyelid no trauma, anterior chamber with arcus senilis. Ears: Pinnas intact and no signs of trauma or erythema ear canals clear and no discharge TM no erythema Nose: No discharge, no bleeding. Oropharynx: Mouth normal, tongue pink. pharynx clear,no erythema, tonsils no exudates, no abscesses noted, mucous membrane moist Neck: Supple, non-tender, no thyromegaly, no masses, no JVD, no bruits Breast:Deferred Chest:No tenderness, no crepitus, no paradoxical movement, no retractions Lungs:Clear, well-ventilated, symmetric, no rales, no wheezing, no rhonchi, no stridor, good breath sounds bilaterally Heart: Regular rate, regular rhythm, no murmur, no gallops Vascular: no peripheral edema, Abdomen: Soft, positive bowel sounds, nondistended, no guarding, nontender, no rebound, no masses no hepatomegaly, no splenomegaly, no Bravo's sign, no hernias. Rectal: Deferred Genital: Deferred Neurological: Normal speech, motor function intact, sensory function intact , upper extremities equal in strength, lower extremities equal in strength, no facial droop, no slurred speech. Musculoskeletal: Neck nontender, full range of motion, back nontender, full range of motion, Extremities: nontender, full range of motion Skin: Color pink, dry, no turgor, no rash, no lacerations, no abrasions, no contusions. Lymphatic: Deferred Results (Laboratory/Radiology) Laboratory/Radiology Laboratory Tests Test 06/10/25 17:20 06/10/25 17:56 06/10/25 18:23 Influenza Type A Antigen Negative For Type A Influenza Type B Antigen Negative For Type B SARS-CoV-2, RNA, NAAT NEGATIVE SARS CoV-2 Group A Streptococcus Rapid negative (NEGATIVE) White Blood Count 14.4 K/uL (4.8-10.8) H Red Blood Count 5.23 MIL/uL (4.50-6.20) Hemoglobin 14.0 g/dL (14.0-18.0) Hematocrit 42.1 % (42-54) Mean Corpuscular Volume 80.5 fL (79-99) Mean Corpuscular Hemoglobin 26.8 pg (27.0-33.0) L Mean Corpuscular Hemoglobin Concent 33.3 g/dL (32.0-36.0) Red Cell Distribution Width 14.3 % (11.0-15.5) Platelet Count 412 K/uL (130-400) H Mean Platelet Volume 9.2 fL (7.5-10.5) Immature Granulocyte % (Auto) 0.4 % (0-1) Neutrophils (%) (Auto) 63.6 % (40.0-77.0) Lymphocytes (%) (Auto) 25.0 % (21.0-51.0) Monocytes (%) (Auto) 5.6 % (3.0-13.0) Eosinophils (%) (Auto) 4.8 % (0.0-8.0) Basophils (%) (Auto) 0.6 % (0.0-5.0) Neutrophils # (Auto) 9.2 K/uL (1.8-7.7) H Lymphocytes # (Auto) 3.6 K/uL (1.0-4.8) Monocytes # (Auto) 0.8 K/uL (0.1-1.0) Eosinophils # (Auto) 0.69 K/uL (0.00-0.70) Basophils # (Auto) 0.08 K/uL (0.00-0.20) Absolute Immature Granulocyte (auto 0.06 K/uL (0-1) Nucleated Red Blood Cells 0.0 % (0.0-0.19) Sodium Level 138 mmol/L (136-145) Potassium Level 3.7 mmol/L (3.5-5.1) Chloride Level 101 mmol/L (101-111) Carbon Dioxide Level 22 mmol/L (21-32) Blood Urea Nitrogen 14 mg/dL (7-18) Creatinine 1.2 mg/dL (0.5-1.3) Glomerular Filtration Rate Calc 77 mL/min (>90) Random Glucose 298 mg/dL (70-105) H Total Calcium 9.3 mg/dL (8.5-10.1) Total Creatine Kinase 148 U/L (21-232) # Troponin I High Sensitivity < 4 ng/L (4-75) L Urine Color COLORLESS (YELLOW) Urine Appearance CLEAR (CLEAR) Urine pH 5.0 (5.0-8.0) Urine Specific [place] 1.032 (1.001-1.031) Urine Protein NEGATIVE mg/dL (NEGATIVE) Urine Glucose (UA) >=1000 mg/dL (NEGATIVE) H Urine Ketones NEGATIVE mg/dL (NEGATIVE) Urine Occult Blood NEGATIVE (NEGATIVE) Urine Nitrate NEGATIVE (NEGATIVE) Urine Bilirubin NEGATIVE mg/dL (NEGATIVE) Urine Urobilinogen 0.2 mg/dL (0.2-1.0) Urine Leukocyte Esterase NEGATIVE Gerald/uL Urine RBC 0-1 /HPF (0-1) Urine WBC 0-1 /HPF (0-1) Urine Squamous Epithelial Cells RARE /HPF (0-2) Urine Bacteria None /HPF (None Seen) Urine Opiates Screen NEGATIVE (NEGATIVE) Urine Barbiturates Screen NEGATIVE (NEGATIVE) Urine Phencyclidine Screen NEGATIVE (NEGATIVE) Urine Amphetamines Screen NEGATIVE (NEGATIVE) Urine Benzodiazepines Screen NEGATIVE (NEGATIVE) Urine Cocaine Screen NEGATIVE (NEGATIVE) Urine Marijuana (THC) Screen NEGATIVE (NEGATIVE) REASON: back pain, cough ORDERING PHYSICIAN: STEVEN THIBODEAUX [employer] PROCEDURE: CXR1VW - CHEST 1VW EXAM: CR Chest, 1 View. CLINICAL HISTORY: back pain, cough COMPARISON: Radiograph dated March 10, 2023 FINDINGS: LUNGS: There is no mass, infiltrate, or acute pulmonary abnormality. PLEURAL SPACES: No evidence of pleural effusion or pneumothorax. MEDIASTINUM: The cardiomediastinal silhouette is within normal limits. BONES: No aggressive appearing osseous lesion seen. IMPRESSION: 1. No acute cardiopulmonary findings. /[place] Labs Reviewed?: Yes EKG: (+) rhythm (Sinus rhythm) EKG Comment: Date: Time:183 Ventricular rate:97 TN interval:165 QRS duration:88 QT/QTc:353/450 EKG interpretation: Sinus rhythm Reviewed by ED Attending no STEMI ED Course ED Course Orders Procedure Category Date Status Time Covid Rna Naat LAB 06/10/25 Complete 17:20 Rapid (Group A Strep) LAB 06/10/25 Complete 17:20 Influenza Type A & B, LAB 06/10/25 Complete Rapid 17:20 Cbc With Differential LAB 06/10/25 Complete 17:26 Chest 1vw RAD 06/10/25 Resulted 17:26 12 Lead Ekg Tracing- EKG 06/10/25 Logged Technical 17:26 0.9%Nacl 1000ml (Ns PHA 06/10/25 In Process 1000ml) 17:30 Acetaminophen 500mg PHA 06/10/25 In Process Tab (Tylenol 500mg T 17:30 Creatine Kinase, Total LAB 06/10/25 Complete 17:26 Troponin I High LAB 06/10/25 Complete Sensitivity 17:26 Urinalysis Profile LAB 06/10/25 Complete 17:26 Basic Metabolic Panel LAB 06/10/25 Complete 17:26 Drug Screen Urine LAB 06/10/25 Complete 17:26 Cyclobenzaprine Hcl PHA 06/10/25 Complete (Cyclobenzaprine Hcl 19:30 Current Medications Medications (Trade) Dose Ordered Sig/Myrtle Route PRN Reason Start Time Stop Time Status Last Admin Dose Admin Acetaminophen (TYLenol 500MG TAB) 1,000 mg ONCE PO 06/10/25 17:30 06/10/25 22:30 06/10/25 18:29 Cyclobenzaprine HCl (Cyclobenzaprine HCl) 5 mg ONCE ONCE PO 06/10/25 19:30 06/10/25 19:31 DC 06/10/25 19:22 Sodium Chloride 1,000 ml @ 0 mls/hr ONCE IV 06/10/25 17:30 06/10/25 21:30 06/10/25 18:28 Vital Signs Date Time Temp Pulse Resp B/P (MAP) Pulse Ox O2 Delivery O2 Flow Rate FiO2 06/10/25 17:15 99.7 110 18 143/98 96 Room Air 0 Medical Decision Making MDM The patient is a 44-year-old male with a history of diabetes, diverticulosis who presents to the emergency department with multiple complaints. Patient reports he has been having upper back pain, nonproductive cough, onset today. Patient also reports he has been having some lightheadedness and shortness of breath that also started today. Patient denies any recent falls. Denies any fevers, denies any ear pain or sore throat. Patient reports he has chronic neck pain due to neck surgery. CBC showed mild leukocytosis, patient with a history of a leukocytosis otherwise patient with no fevers. No anemia, chemistry showed mild hyperglycemia, negative troponin, negative CK, no electrolyte imbalance, toxicology negative, urinalysis unremarkable serology negative. Chest Xray showed no acute pathology. Patient received IV fluids in ER. I reviewed the patient's previous visits. Patient had multiple similar in the past. Patient with chronic neck pain that radiates to upper back. No recent injury. No acute deficits reported. On physical exam patient is no acute distress, neurologically intact. Stable vital signs. Discharge planning discussed with patient who agrees to follow up with his pcp. Differential diagnosis: Dehydration, upper respiratory infection, pneumonia, ACS Need for hospitalization: Patient does not meet criteria for hospitalization. There are no social concerns with this patient. DX & DISP Disposition: Discharge Departure Impression: Primary Impression: URI (upper respiratory infection) Additional Impressions: Mild dehydration, Cervical radiculopathy, Uncontrolled diabetes mellitus Condition: Stable Scripts Cyclobenzaprine HCl (Flexeril) 10 Mg Tab 10 MG PO TID for muscle sstiffness, #14 TAB 0 Refills Prov: STEVEN THIBODEAUX 06/10/25 Additional Instructions: Your labs showed elevated blood sugar. your xray was normal. Please follow up with pcp in 1-2 days. if anything worsens please return to ER. FOLLOW-UP WITH PRIMARY CARE PROVIDER IN 1 TO 2 DAYS. TAKE MEDICATIONS DIRECTED HERE IN THE EMERGENCY ROOM. OKAY TO CONTINUE HOME MEDICATIONS UNLESS OTHERWISE DISCUSSED DURING YOUR VISIT IN THE EMERGENCY ROOM TODAY. RETURN TO YOUR NEAREST EMERGENCY ROOM IF SYMPTOMS WORSEN OR IF THERE IS NO IMPROVEMENT. CALL 911 IF YOU NEED IMMEDIATE ASSISTANCE. TAKE TYLENOL [id number] NEEDED AND IF NO CONTRAINDICATIONS ARE PRESENT. INCREASE ORAL HYDRATION. A WOUND CULTURE OR URINE CULTURE WAS ORDERED HERE IN THE EMERGENCY ROOM DEPARTMENT PLEASE FOLLOW-UP WITH PRIMARY CARE PROVIDER AND ADVISE THEM TO GET REPEAT PORTS FROM OUR FACILITY. IF YOU HAD ANY DANNI WRAP/SPLINTS THAT WERE APPLIED HERE, PLEASE DO NOT REMOVE THEM UNTIL YOU SEE YOUR PRIMARY CARE OR SPECIALTY. Referrals: JENNIFER XIE MD (PCP) Time of Disposition: 19:46 I have reviewed the case, and I agree with, Diagnosis and Plan STEVEN THIBODEAUX Jun 10, 2025 17:34
[2025-06-10 17:58] LABS: SARS-CoV-2, RNA, NAAT NEGATIVE SARS CoV-2 (NEGATIVE)
[2025-06-10 18:03] LABS: INFLUENZA TYPE A Negative For Type A (NEGATIVE); INFLUENZA TYPE B Negative For Type B (NEGATIVE)
[2025-06-10 18:06] LABS: IMMATURE GRANULOCYTE ABSOLUTE 0.06 K/uL (0-1); NUCLEATED RED BLOOD CELLS 0.0 % (0.0-0.19); PLATELET COUNT (AUTO) 412 K/uL (130-400); RED BLOOD CELL COUNT(AUTO) 5.23 MIL/uL (4.50-6.20); RED CELL DISTRIBUTION WIDTH 14.3 % (11.0-15.5); WHITE BLOOD COUNT (AUTO) 14.4 K/uL (4.8-10.8)
[2025-06-10 18:12] LABS: CREATININE 1.2 mg/dL (0.5-1.3); GLOMERULAR FILTR. RATE CALC 77.0 mL/min (>90); GLUCOSE,RANDOM 298.0 mg/dL (70-105); SODIUM SERUM 138.0 mmol/L (136-145); UREA NITROGEN, BLOOD 14.0 mg/dL (7-18)
[2025-06-10 18:22] LABS: CREATINE KINASE, TOTAL 148.0 U/L (21-232)
[2025-06-10] MEDS: 0.9%NACL 1000ML 1,000 ML IV SCH (18:28)
[2025-06-10 18:46] LABS: APPEARANCE,URINE CLEAR (CLEAR); GLUCOSE, URINE (UA) >=1000 mg/dL (NEGATIVE); LEUKOCYTE ESTERASE ,URINE NEGATIVE Leu/uL (NEGATIVE); NITRATE,URINE NEGATIVE (NEGATIVE); OCCULT BLOOD,URINE NEGATIVE (NEGATIVE)
[2025-06-10 18:48] LABS: ADD UA MICROSCOPIC YES
[2025-06-10 18:51] LABS: SQUAMOUS EPITHELIAL CELL,UR RARE /HPF (0-2)
[2025-06-10 18:52] LABS: AMPHET/METH SCREEN,URINE NEGATIVE (NEGATIVE); BARBITURATE SCREEN, URINE NEGATIVE (NEGATIVE); CANNABINOID SCREEN,URINE NEGATIVE (NEGATIVE); COCAINE SCREEN,URINE NEGATIVE (NEGATIVE)
[2025-06-10] MEDS: CYCLOBENZAPRINE HCL 10 MG TABLET PO ONE (19:22)
--- NOTE | 2025-06-10 19:31 | HMCIMG ---
EXAM: CR Chest, 1 View. CLINICAL HISTORY: back pain, cough COMPARISON: Radiograph dated March 10, 2023 FINDINGS: LUNGS: There is no mass, infiltrate, or acute pulmonary abnormality. PLEURAL SPACES: No evidence of pleural effusion or pneumothorax. MEDIASTINUM: The cardiomediastinal silhouette is within normal limits. BONES: No aggressive appearing osseous lesion seen. IMPRESSION: 1. No acute cardiopulmonary findings. /[place]
[2025-06-10] MEDS ORDERED: CYCL10TA16 PO (19:48)
--- NOTE | 2025-06-11 06:29 | EKG ---
[facility] Test Date: 2025-06-10 Test Time: 18:33:52 Pat Name: DANIELLA LAZO Department: ED Room: Gender: M [employer] Winder: [id number] : 1980 Requested By: STEVEN THIBODEAUX Order Number: [id number] Reading MD: Clark Caicedo Measurements Intervals [place] Rate: 97 P: 82 [place]: 165 QRS: -3 QRSD: 88 T: 7 QT: 353 QTc: 450 Interpretive Statements Sinus rhythm Inferior infarct, old Consider anterior infarct Compared to ECG 03/10/2023 20:13:22 No significant changes Electronically Signed On 06-11-2025 22:06:51 CDT by Clark Caicedo Please click the below link to view image of tracing.
== END 2025-06-10 19:49 | disposition home or self-care (01) ==
LOC: EDH 17:12
DX: J06.9 Acute upper respiratory infection, unspecified (principal); E86.0 Dehydration; M54.12 Radiculopathy, cervical region; E11.65 Type 2 diabetes mellitus with hyperglycemia; E66.01 Morbid (severe) obesity due to excess calories; Z79.82 Long term (current) use of aspirin; Z88.5 Allergy status to narcotic agent; Z68.41 Body mass index [BMI] 40.0-44.9, adult; Z20.822 Contact with and (suspected) exposure to COVID-19
CPT/HCPCS: 99284; 71045; 87635; 82550; 84484; 80048; 80305; 85025; 87880; 87804 ×2; 81001; 36415; 93005; J7030